=== PATIENT | female | born 1950 | race Caucasian/White ===

== ENCOUNTER 2018-01-29 02:13 | Outpatient (CLI) | payer OTHER, SELFPAY ==
[2018-01-29 16:53] LABS: Hemoglobin A1C 7.5 % (4.5-6.2)
[2018-01-29 19:07] LABS: CREATININE 1.07 mg/dL (0.55-1.02); Estimated GFR 51.31 (mL/min/1.73m2); Potassium 4.3 mmol/L (3.5-5.1); TSH (W/Ref FT4) 3.16 uIU/mL (0.358-3.74)
== END 2018-01-29 02:33 ==
PROVIDERS: PCP Family Medicine; Visit Provider Family Medicine
DX: E11.9 Type 2 diabetes mellitus without complications (principal); R79.89 Other specified abnormal findings of blood chemistry
CPT/HCPCS: 36415; 82565; 83036; 84132; 84443

== ENCOUNTER 2018-05-20 16:12 | Outpatient (REF) | payer OTHER, SELFPAY ==
[2018-05-27 12:07] LABS: 6-monoacetylmorphine Not Detected ng/mL (Cutoff: 25); Amphetamines Negative ng/mL (Cutoff: 500); Barbiturates Negative ng/mL (Cutoff: 200); Benzodiazepines Negative ng/mL (Cutoff: 100); Buprenorphine Not Detected ng/mL (Cutoff: 5); Cocaine Negative ng/mL (Cutoff: 150); Codeine Not Detected ng/mL (Cutoff: 25); Comment Normal; Creatinine, U 53.5 mg/dL; Dihydrocodeine Not Detected ng/mL (Cutoff: 25); EDDP Not Detected ng/mL (Cutoff: 25); Fentanyl Not Detected ng/mL (Cutoff: 2); Hydrocodone Not Detected ng/mL (Cutoff: 25); Hydromorphone Not Detected ng/mL (Cutoff: 25); Hydromorphone-3-beta-glucuroni Not Detected ng/mL (Cutoff: 100); Meperidine Not Detected ng/mL (Cutoff: 25); Methadone Not Detected ng/mL (Cutoff: 25); Morphine Not Detected ng/mL (Cutoff: 25); N-desmethyltapentadol Not Detected ng/mL (Cutoff: 50); Naloxone Not Detected ng/mL (Cutoff: 25); Norbuprenorphine Not Detected ng/mL (Cutoff: 5); Norfentanyl Not Detected ng/mL (Cutoff: 2); Norhydrocodone Not Detected ng/mL (Cutoff: 25); Normeperidine Not Detected ng/mL (Cutoff: 25); Noroxycodone Not Detected ng/mL (Cutoff: 25); Noroxymorphone Not Detected ng/mL (Cutoff: 25); O-desmethyltramadol Present ng/mL (Cutoff: 25); Phencyclidine Negative ng/mL (Cutoff: 25); Propoxyphene Not Detected ng/mL (Cutoff: 25); Specific Gravity 1.009; Tapentadol Not Detected ng/mL (Cutoff: 25); Tetrahydrocannabinol Negative ng/mL (Cutoff: 50); Tramadol Present ng/mL (Cutoff: 25); pH 5.9
== END 2018-05-20 16:32 ==
LOC: LBN 16:12
PROVIDERS: Visit Provider Nurse Practitioner Family
DX: Z79.891 Long term (current) use of opiate analgesic (principal)
CPT/HCPCS: 80307; 80364

== ENCOUNTER → 2018-06-16 14:23 | Outpatient (BNVA) | payer OTHER, SELFPAY | PROVIDERS: Visit Provider Student in an Organized Health Care Education/Training Program | DX: I20.9 Angina pectoris, unspecified (principal); G45.3 Amaurosis fugax; J44.9 Chronic obstructive pulmonary disease, unspecified; F17.210 Nicotine dependence, cigarettes, uncomplicated; E11.9 Type 2 diabetes mellitus without complications; Z79.4 Long term (current) use of insulin; I10 Essential (primary) hypertension | CPT/HCPCS: 99214 ==

== ENCOUNTER 2018-10-29 15:06 | Outpatient (REF) | payer OTHER, SELFPAY ==
--- NOTE | 2018-10-29 13:30 | PAPFT_PTH ---
PATIENT: Alissa Heck I LOC: [facility] U#:[id number] AGE/SX: 68/F ROOM: RE10/29/[address]: Socorro Chapa MD : 1950 BED: DIS: 10/29/2018 SPEC #: [id number] RECD: 10/29/18 17:12 STATUS: MAXIME REQ #: [id number] THERON: 10/29/18 13:[address]: Socorro Chapa DEPT: [facility] Cytology RECD BY: Micaela Hwang ENTERED: 10/29/18 17:12 SP TYPE: PAPFT OTHR DR: Oleg Pinzon MD Tissues: 1 - CX/ENDOCX FOR PAP SMEARS Procedures: PAP THIN PREP/[facility] Screening Comments: [id number]
== END 2018-10-29 15:26 ==
LOC: LBN 15:06
PROVIDERS: PCP Family Medicine; Visit Provider Obstetrics & Gynecology
DX: Z12.4 Encounter for screening for malignant neoplasm of cervix (principal)
CPT/HCPCS: 88142

== ENCOUNTER 2018-12-01 00:59 | Outpatient (CLI) | payer OTHER, SELFPAY ==
--- NOTE | 2018-12-01 12:52 | DI.MAMMO_ITS ---
SYMPTOM/DIAGNOSIS: SCREENING, Z12.31 MAMMOGRAMS: Mammograms were interpreted according to the usual protocol including computer analysis with CAD system, tomosynthesis and C view imaging. Comparison with prior examinations. Breast density B. No suspicious masses or microcalcifications are seen. There is no definite evidence of malignancy. IMPRESSION: Negative mammogram. Routine screening is recommended. Category I. MQSA ASSESSMENT OF FINDINGS: Negative. Category 1. Patient will receive a letter notifying them of these results. BI-RADS category B. There are scattered areas of fibroglandular density.
== END 2018-12-01 01:19 ==
PROVIDERS: PCP Family Medicine; Visit Provider Obstetrics & Gynecology
DX: Z12.31 Encounter for screening mammogram for malignant neoplasm of breast (principal)
CPT/HCPCS: 77063; 77067

== ENCOUNTER 2018-12-23 11:15 | Outpatient (REF) | payer OTHER, SELFPAY ==
--- NOTE | 2018-12-23 10:25 | VAG_PTH ---
PATIENT: Alissa Heck I LOC: [facility] U#:[id number] AGE/SX: 68/F ROOM: RE12/23/[address]: Socorro Chapa MD : 1950 BED: DIS: 12/23/2018 SPEC #: [id number] RECD: 12/23/18 12:49 STATUS: MAXIME REQ #: [id number] THERON: 12/23/18 10:[address]: Socorro Chapa DEPT: Surgical Specimen RECD BY: Micaela Hwang ENTERED: 12/23/18 12:49 SP TYPE: VAG OTHR DR: Oleg Pinzon MD Tissues: 1 - VAGINAL BIOPSY Procedures: GROSS AND MICRO LEVEL 4 P16 IPEX SPECIAL STAIN 1 Comments: [id number]
== END 2018-12-23 11:35 ==
LOC: LBN 11:15
PROVIDERS: PCP Family Medicine; Visit Provider Obstetrics & Gynecology
DX: N87.0 Mild cervical dysplasia (principal); N76.89 Other specified inflammation of vagina and vulva; Z90.710 Acquired absence of both cervix and uterus; Z90.722 Acquired absence of ovaries, bilateral; Z85.41 Personal history of malignant neoplasm of cervix uteri
CPT/HCPCS: 88305; 88342; 88312

== ENCOUNTER 2019-02-02 11:44 | Outpatient (CLI) | payer OTHER, SELFPAY ==
[2019-02-02 13:17] LABS: CREATININE 1.01 mg/dL (0.55-1.02); Estimated GFR 54.67 (mL/min/1.73m2); Potassium 5.1 mmol/L (3.5-5.1)
[2019-02-02 13:34] LABS: Hemoglobin A1C 8.2 % (4.5-6.2)
== END 2019-02-02 12:04 ==
PROVIDERS: PCP Family Medicine; Visit Provider Family Medicine
DX: E11.9 Type 2 diabetes mellitus without complications (principal)
CPT/HCPCS: 36415; 82565; 83036; 84132

== ENCOUNTER → 2019-02-14 10:41 | Outpatient (BNVA) | payer OTHER, SELFPAY | PROVIDERS: PCP Family Medicine; Referring Provider Family Medicine; Visit Provider Surgery | DX: D17.23 Benign lipomatous neoplasm of skin and subcutaneous tissue of right leg (principal) | CPT/HCPCS: 99201; 99213 ==

== ENCOUNTER 2019-05-03 11:31 | Outpatient (CLI) | payer OTHER, SELFPAY ==
[2019-05-03 12:50] LABS: Hemoglobin A1C 7.9 % (3.8-5.6)
[2019-05-03 13:08] LABS: Potassium 4.9 mmol/L (3.5-5.1)
== END 2019-05-03 11:51 ==
PROVIDERS: PCP Family Medicine; Visit Provider Family Medicine
DX: E11.65 Type 2 diabetes mellitus with hyperglycemia (principal)
CPT/HCPCS: 36415; 83036; 84132

== ENCOUNTER 2019-05-30 13:06 | Outpatient (CLI) | payer OTHER, SELFPAY ==
--- NOTE | 2019-05-30 13:00 | DI.RAD_ITS ---
EXAM: XR SHOULDER RT COMPLETE 2+V CLINICAL HISTORY: Post fall - 5 or 6 weeks ago, tingling in R arm, M25.511 PAIN RT SHOULDER TECHNIQUE: COMPARISON: LEFT SHOULDER COMPLETE from 07/30/2010 FINDINGS: Five views were obtained. There are prominent hypertrophic degenerative changes acromioclavicular gerardo int. Mild marginal osteophyte formation also glenohumeral joint. There is soft tissue calcification associated supraspinatus attachment humeral consistent with a calcific peritendinitis. 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 Soft tissue calcification consistent with supraspinatus peritendinitis.
== END 2019-05-30 13:26 ==
PROVIDERS: PCP Family Medicine
DX: M25.511 Pain in right shoulder (principal); M19.012 Primary osteoarthritis, left shoulder; M75.31 Calcific tendinitis of right shoulder
CPT/HCPCS: 73030

== ENCOUNTER 2019-05-30 20:21 | Outpatient (REF) | payer OTHER, SELFPAY ==
[2019-05-30 20:24] LABS: Bilirubin Negative (Negative); Blood Small (Negative); Clarity Clear (Clear); Glucose Negative (Negative); Ketones Negative (Negative); Leukocyte Esterase Moderate (Negative); Nitrite Negative (Negative); Specific Gravity 1.015 (1.005-1.025); Urobilinogen 0.2 EU/dL (Up TO 0.2)
[2019-05-30 20:51] LABS: Bacteria Moderate HPF (Negative); C & S Indicated? Yes; Casts Negative LPF (Negative); Crystals Negative HPF (Negative); Epithelial Cells Negative HPF (Negative); Mucus Negative (Negative); RBC Negative HPF (0-2); WBC >50 HPF (0-5)
== END 2019-05-30 20:41 ==
LOC: LBN 20:21
PROVIDERS: PCP Family Medicine
DX: R31.9 Hematuria, unspecified (principal)
CPT/HCPCS: 87077; 81003; 81015; 87086; 87186

== ENCOUNTER → 2019-09-02 14:54 | Outpatient (BNVA) | payer OTHER, SELFPAY | PROVIDERS: PCP Family Medicine; Referring Provider Family Medicine; Visit Provider Internal Medicine Cardiovascular Disease | DX: I25.10 Atherosclerotic heart disease of native coronary artery without angina pectoris (principal); J44.9 Chronic obstructive pulmonary disease, unspecified; F17.210 Nicotine dependence, cigarettes, uncomplicated; I10 Essential (primary) hypertension; E11.9 Type 2 diabetes mellitus without complications; Z79.4 Long term (current) use of insulin | CPT/HCPCS: 99212; 99442 ==

== ENCOUNTER 2019-11-04 09:33 | Outpatient (CLI) | payer OTHER, SELFPAY ==
[2019-11-04 12:42] LABS: Abs Immature Grans 0.03 10^3/uL (0.0-0.06); Absolute Basophil Count 0.04 10^3/uL (0.0-0.2); Absolute Eosinophil Count 0.24 10^3/uL (0.0-0.7); Absolute Lymphocyte Count 4.25 10^3/uL (1.2-3.4); Absolute Monocyte Count 0.83 10^3/uL (0.1-0.8); Absolute Neutrophil Count 4.65 10^3/uL (1.2-6.7); Basophils % 0.4; Eosinophils % 2.4; HCT 39.8 % (36.0-46.0); HGB 13.4 g/dL (11.2-15.7); Immature Grans % 0.3; Lymphocytes % 42.3; MCH 30.4 pg (27.0-33.0); MCHC 33.7 % (32.0-36.0); MCV 90.2 fL (80-95); MPV 9.9 fL (8.0-11.0); Monocytes % 8.3; Neutrophils % 46.3; Platelet Count 293 10^3/uL (130-400); RBC 4.41 10^6/uL (3.93-5.22); RDW 12.5 % (11.7-14.6); RDW-SD 41.7 fL; WBC 10.04 10^3/uL (4.4-10.8)
[2019-11-04 13:04] LABS: Hemoglobin A1C 7.8 % (3.8-5.6)
== END 2019-11-04 09:53 ==
PROVIDERS: PCP Family Medicine; Visit Provider Family Medicine
DX: R73.9 Hyperglycemia, unspecified (principal)
CPT/HCPCS: 36415; 83036; 85025

== ENCOUNTER 2019-11-04 10:38 | Outpatient (REF) | payer OTHER, SELFPAY | END 2019-11-04 10:58 | LOC: LBN 10:38 | PROVIDERS: PCP Family Medicine; Visit Provider Family Medicine | DX: R30.0 Dysuria (principal) | CPT/HCPCS: 87086 ==

== ENCOUNTER 2019-11-08 00:58 | Outpatient (CLI) | payer OTHER, SELFPAY ==
--- NOTE | 2019-11-08 07:45 | DI.RAD_ITS ---
EXAM: XR FOOT LT COMPLETE CLINICAL HISTORY: left heel pain, s/p twisting injury 3 weeks ago,LT FOOT PAIN, M79.672 TECHNIQUE: COMPARISON: CR LEFT FOOT COMPLETE from 08/19/2009 FINDINGS: Three views were obtained. There are moderate degenerative changes of the IP joints and joints of th e midfoot. There is prominent irregular enthesophyte of the Achilles insertion on the calcaneus with adjacent soft tissue calcification also noted. There is minimal osteophyte formation at the plantar fascia attachment calcaneus. No other significant bony abnormality seen involving calcaneus. IMPRESSION: Degenerative changes, prominent Achilles enthesophyte and associated soft tissue calcification as samira cribed above. If there is clinical suspicion of Achilles tendinosis or partial tear, additional eval uation with MR may be considered.
== END 2019-11-08 01:18 ==
PROVIDERS: PCP Family Medicine; Visit Provider Family Medicine
DX: M77.8 Other enthesopathies, not elsewhere classified (principal); M19.072 Primary osteoarthritis, left ankle and foot; M25.775 Osteophyte, left foot; M79.672 Pain in left foot
CPT/HCPCS: 73630

== ENCOUNTER 2019-11-08 20:42 | Outpatient (REF) | payer OTHER, SELFPAY | END 2019-11-08 21:02 | LOC: LBN 20:42 | PROVIDERS: PCP Family Medicine; Visit Provider Obstetrics & Gynecology | DX: R30.0 Dysuria (principal) | CPT/HCPCS: 87086 ==

== ENCOUNTER 2019-12-26 00:18 | Outpatient (CLI) | payer OTHER, SELFPAY ==
--- NOTE | 2019-12-26 13:00 | DI.MAMMO_ITS ---
EXAM: MG MAMMO SCREENING CLINICAL HISTORY: screening TECHNIQUE: Bilateral full field digital CC and MLO mammographic images were obtained with 3D tomosyn thesis and utilizing computer aided detection (CAD). COMPARISON: Available for comparison. FINDINGS: Masses/Architectural Distortion: None seen. Microcalcifications: No suspicious pleomorphic-type are seen. Skin Thickening/Nipple Retraction: None. IMPRESSION: 1. No significant interval change with no specific features of malignancy noted. 2. Unless there is more urgent need, screening mammography is recommended, as per [place] [employer] guidelines. BI-RADS Category 1 - Negative Breast Density - Category B - Scattered areas of fibroglandular density A negative radiographic report should not delay biopsy if a dominant or clinically suspicious mass is present. Up to ten percent of cancers are not identified on mammography. A negative report may reinforce clinical impression. Adenosis and dense breasts may obscure an underlying neoplasm. False positive reports average 6 to 10%. Patient will receive a letter notifying them of these results.
== END 2019-12-26 00:38 ==
PROVIDERS: PCP Family Medicine; Visit Provider Obstetrics & Gynecology
DX: Z12.31 Encounter for screening mammogram for malignant neoplasm of breast (principal)
CPT/HCPCS: 77063; 77067

== ENCOUNTER 2020-02-09 07:10 | Outpatient (CLI) | payer OTHER, SELFPAY ==
[2020-02-13 23:49] LABS: Patient Race White; SARS-CoV-2 RNA Undetected (Undetected); SARS-CoV-2 Specimen Source Nasal
== END 2020-02-09 07:30 ==
PROVIDERS: PCP Family Medicine; Visit Provider Family Medicine
DX: R19.7 Diarrhea, unspecified (principal)
CPT/HCPCS: U0003

== ENCOUNTER 2020-04-20 12:32 | Outpatient (REF) | payer OTHER, SELFPAY ==
[2020-04-20 14:31] LABS: Hemoglobin A1C 8.2 % (<5.7)
[2020-04-20 14:40] LABS: CREATININE 1.11 mg/dL (0.55-1.02); Calculated LDL 75 mg/dL (<100); Cholesterol 144 mg/dL (<200); Estimated GFR 48.88 (mL/min/1.73m2); HDL Cholesterol 51 mg/dL (40-60); Triglyceride 93 mg/dL (<150)
[2020-04-20 14:51] LABS: C-Reactive Protein 0.36 mg/dL (0.0-0.3)
[2020-04-20 17:21] LABS: ESR 17 mm/hr (0-30)
== END 2020-04-20 12:52 ==
LOC: LBN 12:32
PROVIDERS: PCP Family Medicine; Visit Provider Family Medicine
DX: E78.5 Hyperlipidemia, unspecified (principal); R73.9 Hyperglycemia, unspecified; M19.042 Primary osteoarthritis, left hand; M19.041 Primary osteoarthritis, right hand; M19.072 Primary osteoarthritis, left ankle and foot
CPT/HCPCS: 80061; 85652; 82565; 83036; 86140

== ENCOUNTER 2020-07-03 13:25 | Outpatient (REF) | payer OTHER, SELFPAY | END 2020-07-03 13:26 | disposition home or self-care (01) | LOC: LBN 13:25 | PROVIDERS: PCP Family Medicine; Visit Provider Family Medicine | DX: G89.4 Chronic pain syndrome (principal); Z79.899 Other long term (current) drug therapy | CPT/HCPCS: 80307; 80373 ==

== ENCOUNTER → 2020-08-03 13:09 | Outpatient (BNVA) | payer OTHER, SELFPAY | PROVIDERS: PCP Family Medicine; Referring Provider Family Medicine; Visit Provider Internal Medicine Cardiovascular Disease | DX: R07.89 Other chest pain (principal); J44.9 Chronic obstructive pulmonary disease, unspecified; F17.210 Nicotine dependence, cigarettes, uncomplicated | CPT/HCPCS: 99213 ==

== ENCOUNTER 2020-10-18 02:10 | Outpatient (CLI) | payer OTHER, SELFPAY ==
--- NOTE | 2020-10-18 08:46 | DI.RAD_ITS ---
Exam(s) XR CHEST 2V PA LATERAL EXAM: XR CHEST 2V PA LATERAL CLINICAL HISTORY: LUQ pain,CHRONIC COUGH, R05. TECHNIQUE: 2D digital imaging was performed. COMPARISON: CR CHEST 2 VIEWS PA,LAT from 10/30/2016 CR CHEST 2 VIEWS PA,LAT from 06/18/2017 CT CHEST - LUNG CANCER SCREENING from 10/13/2017 FINDINGS: Heart size is normal. The mediastinum is not widened. There are no new infiltrates nor pleural effusions. Some scarring in the left lung base is unchanged from 2017. IMPRESSION: No acute pulmonary findings.Mild left lung base scarring is unchanged from 2017. DATA REPOSITORY: RADIATION DOSE DELIVERED:
== END 2020-10-18 02:30 ==
PROVIDERS: PCP Family Medicine; Visit Provider Family Medicine
DX: J98.4 Other disorders of lung (principal); R10.12 Left upper quadrant pain
CPT/HCPCS: 71046

== ENCOUNTER → 2020-10-25 01:20 | Outpatient (CLI) | payer OTHER, SELFPAY ==
--- NOTE | 2020-10-25 08:00 | DI.US_ITS ---
Exam(s) US ABDOMEN EXAM: US ABDOMEN CLINICAL HISTORY: luq pain,R10.12 TECHNIQUE: Ultrasound of complete upper abdomen performed using standard protocol. COMPARISON: US AAA SCREENING from 10/22/2017 FINDINGS: There is no ascites evident. LIVER: Liver appears echogenic implying an element of steatosis. There are no obvious discrete focal hepatic lesions identified on these images. GALLBLADDER/BILIARY: There are no gallstones. No gallbladder wall edema nor pericholecystic fluid. The common hepatic duct measures 5 millimeters, within normal limits.. PANCREAS: There is no evidence of pancreatic mass nor dilatation of the pancreatic duct. SPLEEN: The spleen is not enlarged and there are no intrasplenic lesions evident. KIDNEYS:Kidneys exhibit normal size with no evidence of solid mass, calculus, nor hydronephrosis. No cortical cysts evident. ABDOMINAL AORTA: Not able to visualized due to overlying bowel gas. Indeed, there is a consistently dilated bowel loop in the left upper quadrant which is apparently are a of pain. IVC: Normal diameter where visualized. IMPRESSION: 1. No evidence of cholelithiasis nor dilatation of the biliary tree. 2. Hepatic steatosis. Correlation appropriate hepatic blood work is recommended. 3. Abdominal aorta is not able to be seen on this study due to overlying bowel gas. There is consis tent present prominent loop bowel in the area of this patient's pain which is apparently left upper q uadrant. If clinically indicated follow-up CT scan be performed. DATA REPOSITORY:
== END ==
PROVIDERS: PCP Family Medicine; Visit Provider Family Medicine
DX: K76.0 Fatty (change of) liver, not elsewhere classified (principal)
CPT/HCPCS: 76700

== ENCOUNTER → 2020-12-27 13:51 | Outpatient (BNVA) | payer MEDICARE, SELFPAY | PROVIDERS: PCP Family Medicine; Referring Provider Family Medicine; Visit Provider Physical Therapy Assistant | DX: R10.9 Unspecified abdominal pain (principal); E11.9 Type 2 diabetes mellitus without complications; I10 Essential (primary) hypertension; J44.9 Chronic obstructive pulmonary disease, unspecified | CPT/HCPCS: 99214 ==

== ENCOUNTER 2021-02-08 02:28 | Outpatient (CLI) | payer MEDICARE, SELFPAY ==
--- NOTE | 2021-02-08 15:42 | DI.MAMMO_ITS ---
Exam(s) MAMMO SCREENING EXAM: MAMMO SCREENING CLINICAL HISTORY: SCREENING, Z12.39 TECHNIQUE: Bilateral full field digital CC and MLO mammographic images were obtained with 3D tomosyn thesis and utilizing computer aided detection (CAD). COMPARISON: Available for comparison. FINDINGS: Masses/Architectural Distortion: None seen. Microcalcifications: No suspicious pleomorphic-type are seen. Skin Thickening/Nipple Retraction: None. IMPRESSION: 1. No significant interval change with no specific features of malignancy noted. 2. Unless there is more urgent need, screening mammography is recommended, as per [employer] guidelines. BI-RADS Category 1 - Negative Breast Density - Category B - Scattered areas of fibroglandular density Breast density category C or D implies that the patient has dense breast tissue. Dense breast tissue is very common and is not abnormal but dense breast tissue can make it harder to find cancer on a ma mmogram. Also, dense breast tissue may increase their breast cancer risk. This information about the result of the mammogram report was provided to the patient to raise their awareness. Use this report when you speak with the patient about their risks for breast cancer, which includes their family hist ory. At that time, you may recommend for more screening tests (Ultrasound or MRI) as they might be us eful based on their risk. A negative radiographic report should not delay biopsy if a dominant or clinically suspicious mass is present. Up to ten percent of cancers are not identified on mammography. A negative report may reinforce clinical impression. Adenosis and dense breasts may obscure an underlying neoplasm. False positive reports average 6 to 10%. Patient will receive a letter notifying them of these results.
== END 2021-02-08 02:48 ==
PROVIDERS: PCP Family Medicine; Visit Provider Obstetrics & Gynecology
DX: Z12.31 Encounter for screening mammogram for malignant neoplasm of breast (principal)
CPT/HCPCS: 77063; 77067

== ENCOUNTER 2021-03-04 13:53 | Outpatient (REF) | payer MEDICARE, SELFPAY ==
--- NOTE | 2021-04-18 09:36 | PDOC.ANES ---
Date of service: 04/18/21 Time of Service: 09:36 Anesthesia Note Report Anesthesia Note: I was asked to reach out to Alissa by Dr. Dumont in regards to her anesthesia history. I was able to reach her at her home phone and was able to discuss with her her previous anesthesia experiences. She has had multiple anesthetics in the past that have been a bad experience. She has also had many that have gone well. The most recent anesthetic that she has had was back in 2010 for a shoulder with Mili. She states recalling entering the OR, all monitors going on, then as they (what sounds like) started pushing her induction medications and she had a feeling like someone was crushing her heart: reaching in and squeezing my heart. Her anesthesia record from this case does not show any issues. No midaz was documented. Her BP coming into the room was 180/100. [place] that she states that they where rubbing her down with clothes after. She states that she may have had a reaction to medications, but is unclear. Her most recent positive experience was during a colonoscopy ~ 15 years ago. I do not have records for this. For one of her procedures she stated that they gave her medication either in the same day area or the OR and she stated that she started to pull at her gown around her neck because she felt like she could not breath. They also said to her you feel like you can't breath right?. We discussed that surgery/anesthesia is very stressful for patients. Given her BP and how she was feeling, this might have just been related to her fear of anesthesia/surgery. We discussed that she should feel comfortable voicing her concerns should she elect to have a procedure that requires anesthesia in the future. We also discussed that should she elect to have anesthesia that some preoperative anxiolysis would very likely benefit her (midaz/dexmed). I did discuss that she is someone that we should move slowly with, as in not just grab and go into the OR, but that we should make sure that she is comfortable before we bring her back to the OR to make sure that she has a positive experience. She feels comfortable with our conversation, and states that she may have some of the things done that she has been putting off. She was encouraged to call with any questions.
== END 2021-03-04 13:54 | disposition home or self-care (01) ==
LOC: LBN 13:53
PROVIDERS: PCP Family Medicine; Visit Provider Obstetrics & Gynecology
DX: R30.0 Dysuria (principal)
CPT/HCPCS: 87077; 87086; 87186

== ENCOUNTER 2021-07-08 01:46 | Outpatient (CLI) | payer MEDICARE, SELFPAY ==
--- NOTE | 2021-07-08 08:00 | DI.CTLCSR_ITS ---
Exam(s) CT CHEST LUNG CANCER SCREEN EXAM: CT CHEST LUNG CANCER SCREEN CLINICAL HISTORY: Screening for lung cancer,CURRENT SMOKER, F17.210. TECHNIQUE: Imaging Protocol: Low Dose Technique CONTRAST MATERIAL: None COMPARISON: CT CHEST WITHOUT CONTRAST from 11/04/2016 CT CHEST - LUNG CANCER SCREENING from 10/13/2017 FINDINGS: CHEST: LUNGS: In the superior aspect of the left upper lobe there is a 3 millimeter nodule which was not pre viously present. No new left lung nodules nor pleural effusion. In the opposite-right lung there are no significant nodules evident and no infiltrates nor pleural ef fusions. MEDIASTINUM: There is no obvious hilar nor mediastinal adenopathy. CARDIAC: Heart size is normal. There is no pericardial effusion.Heavy coronary artery calcification noted. Caliber of the thoracic aorta is within normal limits. OTHER: Lowermost images reveal no obvious adrenal masses. No splenomegaly. OSSEOUS: No significant osseous lesions.. IMPRESSION: 1. There is a new small 3 millimeter nodule in the superior segment of the left upper lobe, not evide nt on prior CT scans listed above. Recommend repeat CT scan in 6 months 2. No pleural effusions nor intrathoracic adenopathy evident. 3. Lung RADS Cat 3 - Probably Benign: Probably benign finding(s) - short term follow-up suggested; in clude nodules with a low likelihood of becoming a clinically active cancer. Recommend six-month follow-up CT scan. Lung-RADS 1.0 CATEGORIES: Category 0 - Prior chest CT exam(s) being located for comparison. Category 1 - Annual screening in 12 months. No nodules or definitely benign nodules. Category 2 - Annual screening in 12 months. Benign appearance. Nodules with low likelihood of becomin g active cancer. Category 3 - 6-month follow-up. Probably benign. Short-term follow-up suggested. Nodules with low lik elihood of becoming active cancer. Category 4A - 3-month follow-up and CT/PET if >8 mm in size. Suspicious finding. Findings which requi re additional testing. Category 4B - Findings which require additional testing and tissue sampling. Category 4X - Category 3 or 4 nodules with additional features or imaging findings that increases the suspicion of malignancy. Modifier S- Potentially clinically significant findings (non lung cancer) RADIATION DOSE DELIVERED: 70.38mGy.cm Total DLP 1.84mGy CTDIvol DATA REPOSITORY: All CT scans at this facility are submitted to the National Radiology Data Registry (NRDR) Dose Index Registry (DIR) with the [employer] (ACR). RADIATION OPTIMIZATION: All CT scans at this facility use at least one of these dose optimization te chniques: automated exposure control; mA and/or kV adjustment per patient size (includes targeted exa ms where dose is matched to clinical indication); or iterative reconstruction.
== END 2021-07-08 02:06 ==
PROVIDERS: PCP Family Medicine; Visit Provider Family Medicine
DX: F17.210 Nicotine dependence, cigarettes, uncomplicated (principal); Z12.2 Encounter for screening for malignant neoplasm of respiratory organs; R91.8 Other nonspecific abnormal finding of lung field; R91.1 Solitary pulmonary nodule
CPT/HCPCS: 71271

== ENCOUNTER 2021-07-08 04:18 | Outpatient (CLI) | payer MEDICARE, SELFPAY ==
[2021-07-08 14:39] LABS: CREATININE 1.2 mg/dL (0.55-1.02); Calculated LDL 89 mg/dL (<100); Cholesterol 161 mg/dL (<200); Estimated GFR 44.54 (mL/min/1.73m2); HDL Cholesterol 56 mg/dL (40-60); Potassium 4.8 mmol/L (3.5-5.1); Triglyceride 84 mg/dL (<150)
== END 2021-07-08 04:19 | disposition home or self-care (01) ==
PROVIDERS: PCP Family Medicine; Visit Provider Family Medicine
DX: I10 Essential (primary) hypertension (principal); E78.5 Hyperlipidemia, unspecified
CPT/HCPCS: 36415; 80061; 82565; 84132

== ENCOUNTER → 2021-08-09 10:42 | Outpatient (BNVA) | payer MEDICARE, SELFPAY | PROVIDERS: PCP Family Medicine; Referring Provider Family Medicine; Visit Provider Internal Medicine Cardiovascular Disease | DX: R07.9 Chest pain, unspecified (principal) | CPT/HCPCS: 99212; 99442 ==

== ENCOUNTER 2021-09-11 10:14 | Outpatient (REF) | payer MEDICARE, SELFPAY ==
[2021-09-11 14:26] LABS: COMMENT (LAB VIEW ONLY) 65.71 mg/dL; Microalb ug/mg Crea 80.2 ug/mg Cr
== END 2021-09-11 10:15 | disposition home or self-care (01) ==
LOC: LBN 10:14
PROVIDERS: PCP Family Medicine; Visit Provider Family Medicine
DX: E11.9 Type 2 diabetes mellitus without complications (principal); N39.0 Urinary tract infection, site not specified
CPT/HCPCS: 87077; 82043; 82570; 87086; 87186

== ENCOUNTER 2022-02-18 17:50 | Outpatient (REF) | payer MEDICARE, SELFPAY | END 2022-02-18 17:51 | disposition home or self-care (01) | LOC: LBN 17:50 | PROVIDERS: PCP Family Medicine; Visit Provider Obstetrics & Gynecology | DX: R30.0 Dysuria (principal) | CPT/HCPCS: 87086 ==

== ENCOUNTER 2022-07-17 02:06 | Outpatient (CLI) | payer MEDICARE, SELFPAY ==
[2022-07-17] MEDS: Albuterol HFA 18 GM 200 PUFF INH IH (17:00)
[2022-07-17] MEDS: Inhaler, Assist Device 1 EACH MC (17:01)
--- NOTE | 2022-07-18 11:01 | W.PFT ---
Date of service: 07/17/22 Time of Service: 15:02 Pulmonary Function Test Result Indications: Dyspnea Interpretation Spirometry: There is no airflow limitation. There is no significant bronchodilator response. Lung Volumes: Normal lung volumes Diffusion Capacity: Mildly decreased diffusion Airway Pressure: Normal airways resistance Impression Isolated decreased diffusion. In the correct clinical setting this may represent emphysema, early ILD or pulmonary vascular disease (pulmonary hypertension). Note: When compared to 07/14/18, lung function is stable. Clinical Correlation therefore is recommended.
== END 2022-07-17 02:07 | disposition home or self-care (01) ==
LOC: RT 02:06
PROVIDERS: PCP Family Medicine; Visit Provider Family Medicine
DX: R06.00 Dyspnea, unspecified (principal); F17.210 Nicotine dependence, cigarettes, uncomplicated
CPT/HCPCS: 94060; 94726; 94729

== ENCOUNTER 2022-07-25 00:15 | Outpatient (CLI) | payer MEDICARE, SELFPAY ==
--- NOTE | 2022-07-25 08:30 | DI.CTLCSR_ITS ---
Exam(s) CT CHEST LUNG CANCER SCREEN EXAM: CT CHEST LUNG CANCER SCREEN CLINICAL HISTORY: Screening for lung cancer,CURRENT SMOKER, F17.210. TECHNIQUE: Imaging Protocol: Low Dose Technique CONTRAST MATERIAL: None COMPARISON: CT CT CHEST LUNG CANCER SCREEN from 07/08/2021 FINDINGS: CHEST: LUNGS: There are new no ominous pulmonary nodules. The previously described 3 millimeter nodule in th e superior aspect of the left upper lobe is unchanged from 1 year ago. No new nodules. No infiltrat es. No pleural effusions. MEDIASTINUM: There is no obvious hilar nor mediastinal adenopathy. CARDIAC: Heart size is normal. There is no pericardial effusion.Coronary artery calcification noted. Diameter of the ascending thoracic aorta is 3.9 cm. OTHER: No obvious adrenal masses. OSSEOUS: No significant osseous lesions.No fractures.. IMPRESSION: 1. Stable unchanged appearance of the solitary 3 millimeter nodule in the left upper lobe. No new no dules. No pleural effusions 2. No intrathoracic adenopathy 3. Lung RADS Cat 2 - Benign Appearance / Behavior: Nodules with a very low likelihood of becoming a c linically active cancer due to size or lack of growth Lung-RADS 1.0 CATEGORIES: Category 0 - Prior chest CT exam(s) being located for comparison. Category 1 - Annual screening in 12 months. No nodules or definitely benign nodules. Category 2 - Annual screening in 12 months. Benign appearance. Nodules with low likelihood of becomin g active cancer. Category 3 - 6-month follow-up. Probably benign. Short-term follow-up suggested. Nodules with low lik elihood of becoming active cancer. Category 4A - 3-month follow-up and CT/PET if >8 mm in size. Suspicious finding. Findings which requi re additional testing. Category 4B - Findings which require additional testing and tissue sampling. Category 4X - Category 3 or 4 nodules with additional features or imaging findings that increases the suspicion of malignancy. Modifier S- Potentially clinically significant findings (non lung cancer) RADIATION DOSE DELIVERED: 74.06mGy.cm Total DLP DATA REPOSITORY: All CT scans at this facility are submitted to the National Radiology Data Registry (NRDR) Dose Index Registry (DIR) with the [employer] (ACR). RADIATION OPTIMIZATION: All CT scans at this facility use at least one of these dose optimization te chniques: automated exposure control; mA and/or kV adjustment per patient size (includes targeted exa ms where dose is matched to clinical indication); or iterative reconstruction.
== END 2022-07-25 00:35 ==
LOC: DI 00:16
PROVIDERS: PCP Family Medicine; Visit Provider Family Medicine
DX: Z12.31 Encounter for screening mammogram for malignant neoplasm of breast (principal); F17.210 Nicotine dependence, cigarettes, uncomplicated
CPT/HCPCS: 71271; 77063; 77067

== ENCOUNTER 2022-08-08 10:32 | Outpatient (CLI) | payer MEDICARE, SELFPAY ==
--- NOTE | 2022-08-08 10:30 | RT.EKG_ITS ---
APPROVED REPORT Exam: Resting ECG Reason for Exam: follow up chest pain Patient Location: O HR:66 bpm ECG Measurements Heart Rate 66 AXIS MD 163 P -29 QRSd 86 QRS -21 QT 386 T 36 QTc 405 Conclusion Sinus rhythm...normal P axis, V-rate 50- 99 Borderline left axis deviation...QRS axis (-15,-29)
== END 2022-08-08 10:33 | disposition home or self-care (01) ==
LOC: DI.CARD 10:33
PROVIDERS: PCP Family Medicine; Visit Provider Internal Medicine Cardiovascular Disease
DX: I10 Essential (primary) hypertension (principal); R07.9 Chest pain, unspecified
CPT/HCPCS: 93010

== ENCOUNTER → 2022-08-08 10:40 | Outpatient (BNVA) | payer MEDICARE, SELFPAY | PROVIDERS: PCP Family Medicine; Referring Provider Family Medicine; Visit Provider Internal Medicine Cardiovascular Disease | DX: I25.10 Atherosclerotic heart disease of native coronary artery without angina pectoris (principal); R07.9 Chest pain, unspecified | CPT/HCPCS: 93005; 99213 ==

== ENCOUNTER 2022-08-18 00:30 | Outpatient (CLI) | payer MEDICARE, SELFPAY ==
--- NOTE | 2022-08-18 07:34 | DI.NM_ITS ---
APPROVED REPORT Exam: Pharmacologic Patient Location: Out-Patient Room/Bed: Stress Nurse: Amada Dumont RN Ordering Provider:HEATH LOVELACE, Contact Number: [phone] BMI: 29.29 Baseline Rhythm: Sinus Rhythm Comment: Flat P waves Indications: CAD, longstanding chest pain Medical History Medical History: CAD, COPD, bronchospasm, UTI, abdominal pain, DM, arthritis, sinusitis, dysuria, smo ker, HLD, HTN, depression, chronic pain Cardiac Medications: Tramadol, omeprazole, SL nitro, metformin, ipatroium-albuterol, glargine insulin , aspart insulin, hydrocodone, furosemide, fluticasone, clopidogrel, atenolol, amlodipine, albuterol sulfate Allergies: Nicotine, thiopental, iodine contrast, tomato, ergotamine, erythromycin base, adhesive, ph enobarbital, benzonate, doxycycline, dulaglutide, pravastatin, emagliflozin, losartan, morphine, preg abalin, red dye, valsartan, duloxetine, lisinopril, oxycodone, gabapentin, tetracylcine, isosorbide m onotitrate, buproprion, varenicline Cardiac Risk Factors: Family hx, HTN, HLD, CVD, diabetes, COPD, obesity Previous Cardiac Procedures: None Pretest Chest Pain Characteristics: None Exercise History: Sedentary Physical Disabilities: None Lung Sounds: Clear to auscultation Heart Sounds: Regular Stress Test Details Test: Pharmacologic stress was paired with low level exercise. Reason for pharmacologic stress test: Hx COPD, on beta devon. Nuclear Acquisition: Rest Tc-99m/Stress Tc-99m 1 day Rest Isotope: Tc-99m Sestamibi. Dose: 9.5 Date: 08/18/2022 Injection Time: 0940 Stress Isotope: Tc-99m Sestamibi. Dose: 30.0 Date: 08/18/2022 Injection Time: 1145 HR Resting HR Supine: 65 bpm Max Heart Rate (APMHR): 150.506366 bpm Resting HR Standin bpm Target HR (85% APMHR): 127.677666 bpm Max HR Achieved: 103 bpm % of APMHR: 68.67 Recovery HR: 77 bpm BP Resting BP Supine: 138/62 mmHg Resting BP Standin/72 mmHg Max BP: 184/60 mmHg Recovery BP: 152/66 mmHg ECG Resting ECG: Sinus Rhythm Ectopy: None Comment: Flat P waves Stress ECG: Sinus Tachycardia ST Change: Nondiagnostic low heart rate Arrhythmia: Occasional PAC's Comment: P waves up during stress Recovery ECG: Sinus Rhythm Recovery ST Change: Nondiagnostic low heart rate Recovery Arrhythmia: None Comment: P waves flat again in recovery Clinical Stress Symptoms: Dyspnea Angina Score: None Rate Pressure Product: 66638 Stress ECG Conclusion 1. Resting electrocardiogram showed poor R wave progression 2. Patient underwent testing using pharmacologic stress with regadenoson 3. Peak heart rate achieved was 69% of predicted for age 4. The electrocardiographic portion of the test was nondiagnostic 5. See MPI report Stress Test Summary STAGE HR BP SpO2 Symptoms NOTES Supine 65 138/62 88 Standing 67 152/72 1 min post Lexiscan injection 96 184/66 91 Moderate- severe dyspnea 3 min post Lexiscan injection 90 182/66 97 Dyspnea resolving 6 min post Lexiscan injection 77 152/66 96 All symptoms resolved MPI Conclusion Myocardial perfusion is normal. There is no evidence of ischemia or prior infarction Ejection fraction is 60%, wall motion is normal Radiologist Interpretation Radiologist agrees with Cna Instructor's Interpretation. Radiologist Interpretation by: Susan Shipman MD Interpretation Date/Time: 08/18/2022 16:50:21
== END 2022-08-18 00:50 ==
LOC: DI 00:30
PROVIDERS: PCP Family Medicine; Visit Provider Internal Medicine Cardiovascular Disease
DX: I25.10 Atherosclerotic heart disease of native coronary artery without angina pectoris (principal); R07.9 Chest pain, unspecified
CPT/HCPCS: 78452; 93016; 93018; 93017

== ENCOUNTER → 2022-09-25 10:21 | Outpatient (BNVA) | payer MEDICARE, SELFPAY | PROVIDERS: PCP Family Medicine; Referring Provider Family Medicine; Visit Provider Nurse Practitioner Gerontology | DX: N39.46 Mixed incontinence (principal); R31.9 Hematuria, unspecified; Z87.440 Personal history of urinary (tract) infections | CPT/HCPCS: 51798; 81003; 99214 ==

== ENCOUNTER 2022-09-25 13:47 | Outpatient (REF) | payer MEDICARE, SELFPAY ==
[2022-09-25 14:36] LABS: Bilirubin Negative (Negative); Blood Small (Negative); Clarity Clear (Clear); Glucose Negative (Negative); Ketones Negative (Negative); Leukocyte Esterase Negative (Negative); Nitrite Negative (Negative); Urobilinogen 0.2 mg/dL (Up to 0.2)
[2022-09-25 14:43] LABS: Bacteria Negative HPF (Negative); C & S Indicated? No; Casts 0-2 Hyaline LPF (Negative); Crystals Negative HPF (Negative); Epithelial Cells Few HPF (Negative); Mucus Negative (Negative); WBC Negative HPF (0-5)
== END 2022-09-25 13:48 | disposition home or self-care (01) ==
LOC: LBN 13:47
PROVIDERS: PCP Family Medicine; Visit Provider Nurse Practitioner Gerontology
DX: R31.29 Other microscopic hematuria (principal)
CPT/HCPCS: 81003; 81015

== ENCOUNTER 2022-10-09 11:33 | Outpatient (CLI) | payer MEDICARE, SELFPAY ==
[2022-10-09 13:03] LABS: CREATININE 1.1 mg/dL (0.55-1.02); Estimated GFR 54.06 (mL/min/1.73m2); Potassium 4.6 mmol/L (3.5-5.1)
== END 2022-10-09 11:34 | disposition home or self-care (01) ==
LOC: LOS 11:34
PROVIDERS: PCP Family Medicine; Referring Provider Family Medicine; Visit Provider Family Medicine
DX: I10 Essential (primary) hypertension (principal); E11.8 Type 2 diabetes mellitus with unspecified complications
CPT/HCPCS: 36415; 82565; 84132

== ENCOUNTER 2022-10-09 14:28 | Outpatient (REF) | payer MEDICARE, SELFPAY ==
[2022-10-09 14:23] LABS: COMMENT (LAB VIEW ONLY) 52.58 mg/dL; Microalb ug/mg Crea 145.9 ug/mg Cr
== END 2022-10-09 14:29 | disposition home or self-care (01) ==
LOC: LBN 14:28
PROVIDERS: PCP Family Medicine; Visit Provider Family Medicine
DX: E11.9 Type 2 diabetes mellitus without complications (principal); I10 Essential (primary) hypertension
CPT/HCPCS: 82043; 82570

== ENCOUNTER → 2022-11-12 01:25 | Outpatient (CLI) | payer MEDICARE, SELFPAY ==
--- NOTE | 2022-11-12 09:43 | DI.CT_ITS ---
Exam(s) CT ABDOMEN PELVIS WO EXAM: CT ABDOMEN PELVIS WO CLINICAL HISTORY: microscopic hematuria,r31.9. TECHNIQUE: Imaging Protocol: Axial computed tomography images with coronal and sagittal reformatted images were created and reviewed. Oral: no COMPARISON: CT ABD PELVIS WO CONTRAST from 09/16/2013 FINDINGS: ABDOMEN: Lung Bases: Normal where visualized. Liver: Normal density. No measurable mass. Gallbladder and biliary tract: No radiodense calculus or dilation. Pancreas: Normal density, no abnormal calcifications or inflammatory process. Spleen: Normal. Kidneys: Normal size, contour and axis. No radiodense stones or obstructive uropathy. No masses seen. Adrenal glands: No masses seen. Lymph nodes: Within normal limits. Abdominal Aorta: Abdominal portion non-dilated. Moderate to severe atherosclerotic changes the aort a and femoral arteries.. Soft tissues: Thickening of the scan over the anterior lower abdominal wall. PELVIS: Bladder: Symmetric distention, no gross wall thickening. Bowel: No obstruction or bowel wall thickening. Peritoneal cavity: No ascites, collection or mesenteric inflammatory response. Reproductive organs: Within normal limits. Bones: Degenerative disc changes and lower thoracic and lower lumbar spine. No compression fractures. IMPRESSION: No evidence of urinary tract calculi or mass. No acute abnormality. RADIATION DOSE DELIVERED: 673.93mGy.cm Total DLP DATA REPOSITORY: All CT scans at this facility are submitted to the National Radiology Data Registry (NRDR) Dose Index Registry (DIR) with the [employer] (ACR). RADIATION OPTIMIZATION: All CT scans at this facility use at least one of these dose optimization te chniques: automated exposure control; mA and/or kV adjustment per patient size (includes targeted exa ms where dose is matched to clinical indication); or iterative reconstruction.
== END ==
PROVIDERS: PCP Family Medicine; Visit Provider Nurse Practitioner Gerontology
DX: R31.9 Hematuria, unspecified (principal)
CPT/HCPCS: 74176

== ENCOUNTER → 2022-11-18 15:25 | Outpatient (BNVA) | payer MEDICARE, SELFPAY | PROVIDERS: PCP Family Medicine; Referring Provider Family Medicine; Visit Provider Nurse Practitioner Gerontology | DX: R31.9 Hematuria, unspecified (principal); E11.9 Type 2 diabetes mellitus without complications; I10 Essential (primary) hypertension | CPT/HCPCS: 99443 ==

== ENCOUNTER → 2023-06-19 16:59 | Outpatient (CLI) | payer MEDICARE, SELFPAY ==
--- NOTE | 2023-06-19 16:30 | DI.RAD_ITS ---
Exam(s) XR CHEST 2V PA LATERAL EXAM: XR CHEST 2V PA LATERAL CLINICAL HISTORY: R05.9 cough unspecified, evaluate pathology. TECHNIQUE: 2D digital imaging was performed. COMPARISON: CR XR CHEST 2V PA LATERAL from 10/18/2020 FINDINGS: 2 views: Heart size is normal. The mediastinum is not widened. Lungs are clear. No infiltrates nor pleural effusions. Incidentally noted is evidence of prior rotator cuff surgery in left shoulder and probable ipsilatera l biceps tenodesis. Calcific density at the level of the greater tuberosity of the opposite-right sh oulder noted. IMPRESSION: No acute pulmonary findings. Musculoskeletal findings as above. DATA REPOSITORY: RADIATION DOSE DELIVERED:
== END ==
PROVIDERS: PCP Family Medicine; Visit Provider Nurse Practitioner Family
DX: R05.8 Other specified cough (principal); M89.8X1 Other specified disorders of bone, shoulder; M79.89 Other specified soft tissue disorders
CPT/HCPCS: 71046

== ENCOUNTER 2023-06-20 13:43 | Outpatient (REF) | payer MEDICARE, SELFPAY ==
[2023-06-19 21:52] LABS: Bilirubin Negative (Negative); Blood Trace-intact (Negative); Clarity Clear (Clear); Glucose Negative (Negative); Ketones Negative (Negative); Leukocyte Esterase Negative (Negative); Nitrite Negative (Negative); Urobilinogen 0.2 mg/dL (Up to 0.2); pH 6.5 (5-8)
[2023-06-19 22:19] LABS: Bacteria Few HPF (Negative); C & S Indicated? Yes; Crystals Negative HPF (Negative); Epithelial Cells Rare HPF (Negative); Mucus Negative (Negative); Other Cells Rare Transitional (Negative)
== END 2023-06-20 13:44 | disposition home or self-care (01) ==
LOC: LBN 13:43
PROVIDERS: PCP Family Medicine; Visit Provider Nurse Practitioner Family
DX: N39.0 Urinary tract infection, site not specified (principal)
CPT/HCPCS: 87077; 81003; 81015; 87086; 87186

== ENCOUNTER 2023-07-02 08:16 | Outpatient (CLI) | payer MEDICARE, SELFPAY ==
--- NOTE | 2023-07-02 08:15 | RT.EKG_ITS ---
APPROVED REPORT Exam: Resting ECG Reason for Exam: chest pain Patient Location: O HR:73 bpm ECG Measurements Heart Rate 73 AXIS MO 160 P 22 QRSd 81 QRS -32 QT 367 T 32 QTc 405 Conclusion Sinus rhythm...normal P axis, V-rate 50- 99 Borderline left axis
== END 2023-07-02 08:17 | disposition home or self-care (01) ==
LOC: DI.CARD 08:17
PROVIDERS: PCP Family Medicine; Visit Provider Internal Medicine Cardiovascular Disease
DX: R07.9 Chest pain, unspecified (principal)
CPT/HCPCS: 93010

== ENCOUNTER → 2023-07-02 11:19 | Outpatient (BNVA) | payer MEDICARE, SELFPAY | PROVIDERS: PCP Family Medicine; Referring Provider Family Medicine; Visit Provider Internal Medicine Cardiovascular Disease | DX: I25.118 Atherosclerotic heart disease of native coronary artery with other forms of angina pectoris (principal); R94.31 Abnormal electrocardiogram [ECG] [EKG]; R07.9 Chest pain, unspecified | CPT/HCPCS: 93005; 99213 ==

== ENCOUNTER 2023-07-06 06:11 | Outpatient (CLI) | payer MEDICARE, SELFPAY ==
[2023-07-06 14:21] LABS: ESR 7 mm/hr (0-30)
[2023-07-06 14:23] LABS: HCT 42.7 % (36.0-46.0); HGB 14.5 g/dL (11.2-15.7); MCH 31.5 pg (27.0-33.0); MCV 93 fL (80-95); MPV 9.3 fL (8.0-11.0); Platelet Count 263 10^3/uL (130-400); RBC 4.61 10^6/uL (3.93-5.22); RDW 12.4 % (11.7-14.6); RDW-SD 42.4 fL; WBC 12.41 10^3/uL (4.4-10.8)
[2023-07-06 14:35] LABS: PTT Activated 24.7 sec (23.6-32.8); Prothrombin Time 10.4 sec (9.1-11.1)
[2023-07-06 15:01] LABS: Anion Gap 9.6 mmol/L (3-11); BUN 17 mg/dL (7-18); CO2 28.4 mmol/L (21.0-32.0); Calcium 8.7 mg/dL (8.5-10.1); Chloride 103 mmol/L (98-107); Estimated GFR 60.23 (mL/min/1.73m2); Glucose 158 mg/dL (74-106); Potassium 4.6 mmol/L (3.5-5.1); Sodium 141 mmol/L (136-145)
[2023-07-06 15:03] LABS: C-Reactive Protein < 0.50 mg/dL (<or=0.5)
== END 2023-07-06 06:12 | disposition home or self-care (01) ==
LOC: LBO 06:11
PROVIDERS: PCP Family Medicine; Visit Provider Internal Medicine Cardiovascular Disease
DX: I25.118 Atherosclerotic heart disease of native coronary artery with other forms of angina pectoris (principal); R41.89 Other symptoms and signs involving cognitive functions and awareness
CPT/HCPCS: 36415; 80048; 85027; 85652; 85610; 85730; 86140

== ENCOUNTER → 2023-09-07 13:07 | Outpatient (BNVA) | payer MEDICARE, SELFPAY | PROVIDERS: PCP Family Medicine; Referring Provider Family Medicine; Visit Provider Internal Medicine Cardiovascular Disease | DX: I25.118 Atherosclerotic heart disease of native coronary artery with other forms of angina pectoris (principal); F17.210 Nicotine dependence, cigarettes, uncomplicated | CPT/HCPCS: 99213 ==

== ENCOUNTER 2023-11-17 21:48 | Outpatient (REF) | payer MEDICARE, SELFPAY ==
[2023-11-19 20:50] LABS: COMMENT (LAB VIEW ONLY) 98.88 mg/dL
== END 2023-11-17 21:49 | disposition home or self-care (01) ==
LOC: LBN 21:48
PROVIDERS: PCP Family Medicine; Visit Provider Family Medicine
DX: E11.9 Type 2 diabetes mellitus without complications (principal)
CPT/HCPCS: 82043; 82570

== ENCOUNTER 2023-11-23 02:25 | Outpatient (CLI) | payer MEDICARE, SELFPAY ==
--- NOTE | 2023-11-23 06:45 | DI.CT_ITS ---
Exam(s) CT CHEST WO EXAM: CT CHEST WO CLINICAL HISTORY: left mid back pain, weight loss, smoker. TECHNIQUE: Imaging protocol: Axial computed tomography images were obtained and coronal and sagittal reformatted images were created and reviewed. CONTRAST MATERIAL: Noncontrast COMPARISON: CT CT CHEST LUNG CANCER SCREEN from 07/25/2022 FINDINGS: Pulmonary parenchyma: No consolidation. Stable 3 millimeter nodule left upper lobe. Scattered calci fied granulomas. New 3 millimeter endobronchial nodule in the right lower lobe subsegmental branch.. Emphysema: Minimal. Tracheobronchial tree: No mucous plugging. No bronchiectasis . Interstitial changes: None. Pleura: No effusion or pneumothorax. Heart: The heart is not dilated. The coronary arteries show heavy calcifications. Aorta: Thoracic aorta non-dilated. Mild atherosclerotic changes. Lymph nodes: No enlarged lymph nodes. Bones: Advanced degenerative changes are seen in the mid thoracic spine. No evidence of compressio n fracture. Upper abdomen: Unremarkable. Soft tissues: Unremarkable. IMPRESSION: 3 millimeter endobronchial nodule now seen in the right lower lobe sub segmental branch. Stable 3 mi llimeter nodule left upper lobe. Unexpected findings RADIATION DOSE DELIVERED: Total DLP Total DLP DATA REPOSITORY: All CT scans at this facility are submitted to the National Radiology Data Registry (NRDR) Dose Index Registry (DIR) with the [employer] ([employer]). RADIATION OPTIMIZATION: All CT scans at this facility use at least one of these dose optimization te chniques: automated exposure control; mA and/or kV adjustment per patient size (includes targeted exa ms where dose is matched to clinical indication); or iterative reconstruction.
== END 2023-11-23 02:45 ==
LOC: DI 02:25
PROVIDERS: PCP Family Medicine; Visit Provider Family Medicine
DX: M54.9 Dorsalgia, unspecified (principal)
CPT/HCPCS: 71250

== ENCOUNTER 2024-12-22 04:14 | Outpatient (CLI) | payer MEDICARE, SELFPAY ==
--- NOTE | 2024-12-22 13:00 | DI.MAMMO_ITS ---
Exam(s) MAMMO SCREENING EXAM: MAMMO SCREENING CLINICAL HISTORY: screening TECHNIQUE: Bilateral full field digital CC and MLO mammographic images were obtained with 3D tomosynthesis and utilizing computer aided detection (CAD). COMPARISON: Comparison is made with prior examinations. FINDINGS: Masses/Architectural Distortion: No suspicious masses or areas of architectural distortion are present. There is a new 4 mm nodule in the upper outer quadrant of the right breast. Microcalcifications: No suspicious pleomorphic-type are seen. Skin Thickening/Nipple Retraction: None. IMPRESSION: 1. New 4 mm nodule in the upper outer quadrant of the right breast. 2. This area should be further evaluated with spot compression view. Ultrasound may be indicated at that time. BI-RADS Category 0 - Incomplete: Need additional imaging evaluation Breast Density - Category B - There are scattered areas of fibroglandular density. Breast density Category C or D implies that the patient has dense breast tissue. Dense breast tissue can make it harder to find cancer on a mammogram. Dense breast tissue is also associated with an increased risk of breast cancer. This information about the result of the mammogram report was provided to the patient to raise their awareness. Use this report when you speak with the patient about their risks for breast cancer, which includes their family history. At that time, you may recommend additional screening tests (Ultrasound or MRI) as these tests may add significant information. A negative radiographic report should not delay biopsy if a dominant or clinically suspicious mass is present. Up to ten percent of cancers are not identified on mammography. A negative report may reinforce clinical impression. Adenosis and dense breasts may obscure an underlying neoplasm. False positive reports average 6 to 10%. Patient will receive a letter notifying them of these results.
== END 2024-12-22 04:34 ==
LOC: DI 04:14
PROVIDERS: PCP Family Medicine; Visit Provider Obstetrics & Gynecology
DX: Z12.31 Encounter for screening mammogram for malignant neoplasm of breast (principal)
CPT/HCPCS: 77063; 77067

== ENCOUNTER 2024-12-22 04:18 | Outpatient (CLI) | payer MEDICARE, SELFPAY ==
--- NOTE | 2024-12-22 11:53 | DI.RAD_ITS ---
Exam(s) XR CHEST 2V PA LATERAL EXAM: XR CHEST 2V PA LATERAL CLINICAL HISTORY: cough; smoker,r05.3 TECHNIQUE: 2D digital imaging was performed of the chest. Two images were obtained. PA and lateral views were obtained. COMPARISON: CR XR CHEST 2V PA LATERAL from 06/19/2023 FINDINGS: MEDIASTINUM: Normal. HEART: Normal. PULMONARY VASCULATURE: Normal. LUNGS: Clear. PLEURAL SPACE: No pleural effusion or pneumothorax. BONE:Within normal limits for the patient's age. OTHER FINDINGS:Normal. IMPRESSION: No acute pulmonary findings. DATA REPOSITORY: RADIATION DOSE DELIVERED:
== END 2024-12-22 04:38 ==
LOC: DI 04:18
PROVIDERS: PCP Family Medicine; Visit Provider Family Medicine
DX: R05.3 Chronic cough (principal)
CPT/HCPCS: 71046

== ENCOUNTER 2024-12-27 10:42 | Outpatient (REF) | payer MEDICARE, SELFPAY | END 2024-12-27 10:43 | disposition home or self-care (01) | LOC: LBN 10:42 | PROVIDERS: PCP Family Medicine; Visit Provider Obstetrics & Gynecology | DX: R30.0 Dysuria (principal) | CPT/HCPCS: 87077; 87086; 87186 ==

== ENCOUNTER 2025-01-10 01:13 | Outpatient (CLI) | payer MEDICARE, SELFPAY ==
--- NOTE | 2025-01-10 10:28 | DI.MAMMO_ITS ---
Exam(s) MG MAMMO SCREEN CALL BACK UNI US BREAST RT COMPLETE EXAM: MG MAMMO SCREEN CALL BACK UNI and U/S breast RT complete CLINICAL HISTORY: NEW 4MM NODULE RT UPPER OUTER QUAD RT BREAST R92.8 ABNL MAMMO. TECHNIQUE: Craniocaudal and mediolateral oblique Full Field Digital Mammography views of the right breast with Computer Aided Diagnosis followed by Tomosynthesis and complete right breast ultrasound. All 4 quadrants of the right breast were evaluated sonographically in addition to the axilla and retr oareolar regions. COMPARISON: Comparison is made with prior examinations. FINDINGS: Mammography/Tomosynthesis: Masses/Architectural Distortion: There is a well-circumscribed 4 mm nodule in the upper outer quadrant of the right breast persists. No architectural distortion or so seated microcalcifications are present. Microcalcifictions: No suspicious pleomorphic-type are seen. Skin Thickening/Nipple Retraction: None. Complete right breast US: Echotexture: Normal appearance of the glandular tissue. Shadowing: No suspicious foci. Cyst: None. Solid lesions: None seen. Ductal dilation: None. IMPRESSION: 1. Well-circumscribed 4 mm nodule in the upper outer quadrant of the right breast. No definite sonographic features are seen on this time. 2. A follow-up 3 month mammogram is requested. Ultrasound may be indicated at that time. 3. The findings were discussed with the patient on the date of the examination. BI-RADS Category 3 - Probably Benign Finding: Recommend follow-up imaging in 3 months Breast Density - Category B - There are scattered areas of fibroglandular density. Breast density Category C or D implies that the patient has dense breast tissue. Dense breast tissue can make it harder to find cancer on a mammogram. Dense breast tissue is also associated with an increased risk of breast cancer. This information about the result of the mammogram report was provided to the patient to raise their awareness. Use this report when you speak with the patient about their risks for breast cancer, which includes their family history. At that time, you may recommend additional screening tests (Ultrasound or MRI) as these tests may add significant information. A negative radiographic report should not delay biopsy if a dominant or clinically suspicious mass is present. Up to ten percent of cancers are not identified on mammography. A negative report may reinforce clinical impression. Adenosis and dense breasts may obscure an underlying neoplasm. False positive reports average 6 to 10%. Patient will receive a letter notifying them of these results.
== END 2025-01-10 01:33 ==
LOC: DI 01:13
PROVIDERS: PCP Family Medicine; Visit Provider Obstetrics & Gynecology
DX: Z12.31 Encounter for screening mammogram for malignant neoplasm of breast (principal); N63.11 Unspecified lump in the right breast, upper outer quadrant
CPT/HCPCS: 76642; 77063; 77067